=== PATIENT | male | born 1960 | race Caucasian/White ===

== ENCOUNTER 2023-11-06 06:39 | Day surgery (SDC) | payer OTHER, SELFPAY ==
[2023-11-06] VITALS (9 sets, daily range): BP systolic 143–172; BP diastolic 76–90; BMI 22.7
[2023-11-06] MEDS: CYSVIEW KIT 100 MG INTRAVES (08:57)
[2023-11-06] MEDS: NORMOSOL-R 1000 IV (09:12)
[2023-11-06] MEDS: SYRINGE NON-PUMP 50 MG IRRIG ×2 (13:00→13:01)
[2023-11-06] MEDS: SYRINGE NON-PUMP 50 ML IRRIG ×2 (13:00→13:01)
[2023-11-06] MEDS: Pyridium 200 MG PO (13:23)
== END 2023-11-06 14:45 | disposition home or self-care (01) ==
LOC: SDS 06:39
PROVIDERS: ATTENDING PHYSICIAN Specialist; PRIMARYCARE PHYSICIAN Family Medicine
DX: C67.9 Malignant neoplasm of bladder, unspecified (principal)
CPT/HCPCS: 52240; 88305; 88307; A9589; J9201